=== PATIENT | female | born 1935 | race Caucasian/White ===

== ENCOUNTER 2016-03-25 14:50 | Outpatient (CLI) | payer MEDICARE, OTHER | END 2016-03-25 14:51 | disposition home or self-care (01) | DX: Z12.31 Encounter for screening mammogram for malignant neoplasm of breast (principal) ==

== ENCOUNTER 2016-05-13 08:31 | Outpatient (CLI) | payer MEDICARE, OTHER | END 2016-05-13 08:32 | disposition home or self-care (01) | DX: N18.4 Chronic kidney disease, stage 4 (severe) (principal); D63.1 Anemia in chronic kidney disease ==

== ENCOUNTER 2017-07-29 08:24 | Outpatient (CLI) | payer MEDICARE, OTHER ==
--- NOTE | 2017-07-29 15:15 | Ultrasound Report ---
CAROTID DUPLEX: 07/29/2017 CLINICAL INDICATION: Partial retinal artery occlusion. COMPARISON: 03/23/2014. TECHNIQUE: Real-time sonographic vascular imaging was performed by the sql ssrs ssis developer through the carotid arteries utilizing both color-flow and Doppler spectral analysis. Multiple entry level account representative static images were saved for review. RIGHT Vessel PSV cm/sec EDV cm/sec ICA/CCA RSV Ratio Degree of Stenosis Plaque Estimate % RCCA Prox 45 -- -- RCCA Dist 50 12 -- RECA 264 -- -- RT BULB 121 24 2.42 IVANIA Prox 106 23 2.12 IVANIA Mid 102 20 2.04 IVANIA Dist 73 17 1.46 RVA 51 -- -- RVA flow direction: Antegrade LEFT Vessel PSV cm/sec EDV cm/sec ICA/CCA RSV Ratio Degree of Stenosis Plaque Estimate % LCCA Prox 45 -- -- LCCA Dist 50 11 -- LECA 232 -- -- LFT BULB 110 24 2.20 LICA Prox 107 20 2.14 LICA Mid 131 33 2.62 LICA Dist 90 22 1.80 LVA 46 -- -- LVA flow direction: Antegrade Velocity criteria are extrapolated from diameter data as defined by the Society of Radiologists in Ultrasound Consensus Conference Radiology 2003; 229; 340-346. Degree of Stenosis % ICA PSV cm/sec ICA EDV cm/sec ICA/CCA PSV Ratio Plaque Estimate % Normal < 125 < 40 < 2.0 None <50 < 125 < 40 < 2.0 < 50 50-69 125-130 40-100 2.0-4.0 >/=50 >/=70 but less than near occlusion > 230 > 100 > 4.0 >/=50 Near occlusion High, low or undetectable Variable Variable Visible Total occlusion Undetectable Not applicable Not applicable No detectable lumen FINDINGS RIGHT: There is moderate calcified plaque in right carotid bifurcation, producing 50%-70% luminal diameter narrowing by velocity criteria. LEFT: There is moderate calcified plaquing in the left carotid bifurcation and left internal carotid artery, producing 50%-70% luminal diameter narrowing by velocity criteria. The vertebral arteries demonstrate antegrade flow bilaterally. IMPRESSION: MODERATE BILATERAL PLAQUING, PRODUCING 50% to 70% LUMINAL DIAMETER STENOSIS BY VELOCITY CRITERIA. TD: 07/29/2017 11:01 [facility]
== END 2017-07-29 08:25 | disposition home or self-care (01) ==
LOC: DI 08:24
PROVIDERS: ATTEND Ophthalmology
DX: H34.211 Partial retinal artery occlusion, right eye (principal); I65.23 Occlusion and stenosis of bilateral carotid arteries; K22.8 Other specified diseases of esophagus; K44.9 Diaphragmatic hernia without obstruction or gangrene; K21.9 Gastro-esophageal reflux disease without esophagitis
CPT/HCPCS: 74220; 93880; A9270

== ENCOUNTER 2017-07-29 08:27 | Outpatient (CLI) | payer MEDICARE, OTHER ==
[2017-07-29] MEDS ORDERED: BARIUM SULFATE 148 GM POWDER PO ONE (10:49)
[2017-07-29] MEDS ORDERED: BARIUM SULFATE 450 ML BOTTLE PO ONE (10:49)
[2017-07-29] MEDS ORDERED: BARIUM SULFATE 135 ML BOTTLE PO ONE (11:00)
--- NOTE | 2017-07-29 11:03 | XRAY Report ---
ESOPHAGRAM: 07/29/2017 CLINICAL INDICATION: Vomiting. FINDINGS: Esophagram was performed in the upright and prone positions. The hypopharynx appears unremarkable. There was silent aspiration during the course of the examination. The esophagus demonstrates diffuse tertiary contractions. No esophageal ulceration, mass, or stricturing is identified. A small sliding hiatal hernia is present, producing gastroesophageal reflux. A 13 mm barium pill passed freely through the esophagus and into the stomach. IMPRESSION: 1. SILENT ASPIRATION DURING THE COURSE OF THE EXAMINATION. 2. PRESBYESOPHAGUS. 3. SMALL HIATAL HERNIA, PRODUCING REFLUX. FLUOROSCOPY TIME: Two minutes 53 seconds; 22 spot images obtained. TD: 07/29/2017 10:52
== END 2017-07-29 08:28 | disposition home or self-care (01) ==
LOC: DI 08:27
PROVIDERS: ATTEND Family Medicine
DX: R11.10 Vomiting, unspecified (principal); K22.8 Other specified diseases of esophagus; K44.9 Diaphragmatic hernia without obstruction or gangrene; K21.9 Gastro-esophageal reflux disease without esophagitis
CPT/HCPCS: 74220

== ENCOUNTER 2017-09-01 10:17 | Outpatient (CLI) | END 2017-09-01 10:18 | disposition home or self-care (01) | CPT/HCPCS: 74230; 92611; G8996; G8997; G8998 ==

== ENCOUNTER 2017-10-15 22:52 | Outpatient (CLI) | payer MEDICARE, OTHER | END 2017-10-15 22:53 | disposition short-term general hospital (02) | LOC: EMS 22:52 | PROVIDERS: ATTEND Surgery | DX: R06.02 Shortness of breath (principal); R05 Cough; R11.2 Nausea with vomiting, unspecified; R10.32 Left lower quadrant pain | CPT/HCPCS: A0425; A0427; A0888 ==

== ENCOUNTER 2017-10-17 14:04 | Outpatient (CLI) | payer MEDICARE, OTHER | END 2017-10-17 14:05 | disposition critical access hospital (66) | LOC: EMS 14:04 | PROVIDERS: ATTEND Surgery | DX: R10.31 Right lower quadrant pain (principal) | CPT/HCPCS: A0425; A0429 ==

== ENCOUNTER 2017-10-17 14:19 | Emergency (ER) | payer MEDICARE, OTHER ==
[2017-10-17] MEDS ORDERED: SODIUM CHLORIDE 0.9% 1,000 ML IV ONE (14:58)
[2017-10-17] MEDS ORDERED: MORPHINE 2 MG/ML SYRINGE IVP STA ×2 (14:58→21:12)
--- NOTE | 2017-10-17 15:04 | ED Physician Documentation ---
PD HPI ABD PAIN - Stated complaint Stated Complaint: ABD PAIN - Chief complaint Chief Complaint: Abd Pain - History obtained from History obtained from: Patient, Family (mostly from the ) - History of Present Illness Timing - onset: Other (This is an 82-year-old woman with history of A. fib not on anticoagulation who over the last several months has had abdominal pain nausea and diarrhea which was treated successfully with Colestid and omeprazole. Over the last 3 days the pain has moved from the left to the right and has become much more severe even movement hurts now. She has a history of hysterectomy and what sounds like either a bladder or uterine prolapse surgery, otherwise no abdominal surgeries.) Review of Systems Ten Systems: 10 systems reviewed and negative Constitutional: denies: Fever, Chills GI: reports: Abdominal Pain, Nausea, Vomiting, Diarrhea. denies: Bloody / black stool : denies: Frequency PD PAST MEDICAL HISTORY - Past Medical History Cardiovascular: Congestive heart failure, Hypertension, High cholesterol, Coronary artery disease, Atrial fibrillation Respiratory: Asthma : Renal insuffiency, Other Psych: None - Past Surgical History Past Surgical History: Yes Ortho: Hip replacement - Present Medications Home Medications: Ambulatory Orders Medication Instructions Recorded Confirmed Aspirin [Aspir 81] 81 mg PO DAILY 03/23/14 10/17/17 Acetaminophen [Tylenol Extra 500 - 1,000 mg PO PRN PRN 07/04/16 10/17/17 Strength] Epinephrine [Epipen 2-Jayy] 0.3 mg IJ PRN PRN 07/04/16 10/17/17 Isosorbide Mononitrate [Isosorbide 60 mg PO DAILY 07/04/16 10/17/17 Mononitrate ER] Labetalol [Trandate] 200 mg PO BID 07/04/16 10/17/17 Nitroglycerin 0.4 mg SL PRN PRN 07/04/16 10/17/17 Atorvastatin Calcium 40 mg PO QPM 09/05/17 10/17/17 Hydralazine HCl 100 mg PO TID 09/05/17 10/17/17 Omeprazole 20 mg PO DAILY 09/05/17 10/17/17 Colestipol HCl [Colestid] 2 g PO BIDWM 10/17/17 10/17/17 Cranberry Fruit Extract [Cranberry] 300 mg PO DAILY 10/17/17 10/17/17 Multivitamin [Theragran] 1 each PO DAILY 10/17/17 10/17/17 - Allergies Allergies/Adverse Reactions: Allergies Allergy/AdvReac Type Severity Reaction Status Date / Time Sulfa (Sulfonamide Allergy Unknown Verified 10/17/17 14:29 Antibiotics) - Social History Does the pt smoke?: No Smoking Status: Former smoker Does the pt drink ETOH?: No Does the pt have substance abuse?: No - Immunizations Immunizations are current?: Yes - POLST Patient has POLST: No PD ED PE NORMAL - Vitals Vital signs reviewed: Yes - General General: Other (She seems slightly sedated her out of it, she is moaning in pain and does appear somewhat ill.) - HEENT HEENT: PERRL, EOMI - Neck Neck: Supple, no meningeal sign, No bony TTP - Respiratory Respiratory: No respiratory distress, Clear bilaterally - Abdomen Abdomen: Other (She has diminished bowel sounds and is profoundly tender everywhere especially on the right with guarding and rigidity.) - Back Back: No CVA TTP, No spinal TTP - Derm Derm: Normal color, Warm and dry - Extremities Extremities: No edema, No calf tenderness / cord - Neuro Neuro: Alert and oriented X 3 Eye Opening: To Voice Motor: Obeys Commands Verbal: Oriented GCS Score: 14 - Psych Psych: Normal mood, Normal affect Results - Vitals Vitals: Vital Signs - 24 hr 10/17/17 10/17/17 10/17/17 14:23 15:36 15:52 Temperature 37.7 C H Heart Rate 78 79 78 Respiratory 20 26 H 26 H Rate Blood Pressure 155/62 H 145/56 H 150/60 H O2 Saturation 97 94 96 10/17/17 10/17/17 17:00 17:50 Temperature 37.4 C Heart Rate 79 78 Respiratory 26 H 20 Rate Blood Pressure 163/58 H 154/56 H O2 Saturation 97 97 Oxygen O2 Source Nasal cannula - Labs Labs: Laboratory Tests 10/17/17 10/17/17 10/17/17 15:14 15:14 15:14 WBC 9.2 RBC 3.41 L Hgb 10.8 L Hct 32.1 L MCV 94.0 MCH 31.7 H MCHC 33.8 RDW 15.7 H Plt Count 154 MPV 10.0 Neut # (Auto) 8.0 H Lymph # (Auto) 0.6 L Ray # (Auto) 0.6 Eos # (Auto) 0.0 Baso # (Auto) 0.0 Absolute Nucleated RBC 0.00 Nucleated RBC % 0.0 PT 12.4 INR 1.1 Sodium 132 L Potassium 4.0 Chloride 100 L Carbon Dioxide 22 Anion Gap 10.0 BUN 35 H Creatinine 1.9 H Estimated GFR (MDRD) 25 L Glucose 114 H Lactic Acid Calcium 9.2 Total Bilirubin 1.6 H AST 20 ALT 15 Alkaline Phosphatase 79 Total Protein 6.3 L Albumin 3.0 L Globulin 3.3 Albumin/Globulin Ratio 0.9 L Lipase 21 L Blood Type Blood Type Recheck Antibody Screen 10/17/17 10/17/17 10/17/17 15:14 15:14 15:30 WBC RBC Hgb Hct MCV MCH MCHC RDW Plt Count MPV Neut # (Auto) Lymph # (Auto) Ray # (Auto) Eos # (Auto) Baso # (Auto) Absolute Nucleated RBC Nucleated RBC % PT INR Sodium Potassium Chloride Carbon Dioxide Anion Gap BUN Creatinine Estimated GFR (MDRD) Glucose Lactic Acid 1.1 Calcium Total Bilirubin AST ALT Alkaline Phosphatase Total Protein Albumin Globulin Albumin/Globulin Ratio Lipase Blood Type AB POSITIVE Blood Type Recheck AB POSITIVE Antibody Screen NEGATIVE - Rads (name of study) CT A/P Radiology: EMP read contemporaneously (1. Acute cholecystitis. No dilated common bile duct. Possible choledocholithiasis in the lower common bile duct. This could be evaluated intraoperatively during holecystectomy. 2. No CT findings concerning for acute pancreatitis. Atrophic pancreas. 3. Small bilateral effusions. Bilateral lower lobe atelectasis. 4. [id number] cardiac enlargement. Small pericardial effusion. 5. Diverticulosis. ) PD MEDICAL DECISION MAKING - ED course ED course: She does seem to have a surgical belly on examination and I called the surgeon for evaluation who quickly came to the emergency department to see the patient, Dr. Emanuel. I also ordered a stat upright chest x-ray to evaluate for free air. There is no free air. This is followed by CT showing cholecystitis. Given the significant exam Dr. Emanuel will still take her to the OR and request Zosyn in the interim. She received records from her prior cardiology visit that say at one time her EF was as low as 15% so requests a preop echo which was ordered and we confirmed with the parking enforcement technician that this can be done immediately. PRELIM echo read shows EF of 40-45%, moderate left ear and pulmonary hypertension. I spoke with the on-call Airset Molder at [facility] who felt The AICD could be deactivated with a magnet and then interrogated the next day. This was for the surgery. However the surgeon here Dr. Emanuel spoke with the family and they want her transferred to a place that can potentially do cholecystostomy tube and [place] was paged at 5:15 PM. She was accepted to [facility] at 6:[address] Reyna - Sepsis Event Vital Signs: Vital Signs - 24 hr 10/17/17 10/17/17 10/17/17 14:23 15:36 15:52 Temperature 37.7 C H Heart Rate 78 79 78 Respiratory 20 26 H 26 H Rate Blood Pressure 155/62 H 145/56 H 150/60 H O2 Saturation 97 94 96 10/17/17 10/17/17 17:00 17:50 Temperature 37.4 C Heart Rate 79 78 Respiratory 26 H 20 Rate Blood Pressure 163/58 H 154/56 H O2 Saturation 97 97 Oxygen O2 Source Nasal cannula Departure - Departure Disposition: 02 Transfer Acute Care Hosp Clinical Impression: Cholecystitis, Peritonitis Condition: Serious
--- NOTE | 2017-10-17 15:24 | XRAY Report ---
Procedure Date: 10/17/2017 Accession Number: [id number] / [id number] Procedure: XR - Chest 1 View X-Ray CPT Code: 53032 FULL RESULT: EXAM: CHEST RADIOGRAPHY EXAM DATE: 10/17/2017 03:12 PM. CLINICAL HISTORY: Abdominal pain. COMPARISON: Chest 2 view PA/lateral 09/19/2015. TECHNIQUE: 1 view. FINDINGS: Lungs/Pleura: Compared to prior, lung volumes are decreased. There is crowding and haziness of pulmonary markings as well as a small amount of fluid in the horizontal fissure and blunting of the left costophrenic angle. Calcified nodules are stable. No pneumothorax. Mediastinum: The aorta is calcified. Prominence of the cardiac silhouette is likely due to AP technique. Other: Interval placement of a biventricular AICD. IMPRESSION: Interval placement of an AICD and development of mild pulmonary congestion. RADIA
[2017-10-17 15:28] LABS: BASOPHILS % (AUTO) 0.1 %; HGB - HEMOGLOBIN 10.8 g/dL (12.0-16.0); LYMPHOCYTES # (AUTO) 0.6 10^3/uL (1.5-3.5); MEAN CORPUSCULAR HEMOGLOBIN 31.7 pg (27.0-31.0); MEAN CORPUSCULAR HGB CONC 33.8 g/dL (32.0-36.0); MONOCYTES # (AUTO) 0.6 10^3/uL (0.0-1.0); MONOCYTES % (AUTO) 6.8 %; NEUTROPHILS % (AUTO) 87.1 %; PLT - PLATELET COUNT 154 10^3/uL (130-450); RED BLOOD COUNT 3.41 10^6/uL (4.20-5.40); RED CELL DISTRIBUTION WIDTH 15.7 % (12.0-15.0); WHITE BLOOD COUNT 9.2 x10^3/uL (4.8-10.8)
[2017-10-17 15:35] LABS: ALBUMIN/GLOBULIN RATIO 0.9 (1.0-2.2); BILIRUBIN,TOTAL 1.6 mg/dL (0.2-1.0); CALCIUM 9.2 mg/dL (8.5-10.3); CREATININE 1.9 mg/dL (0.4-1.0); TOTAL PROTEIN 6.3 g/dL (6.7-8.2)
[2017-10-17 15:46] LABS: INR 1.1 (0.8-1.2); PT - PROTHROMBIN TIME 12.4 secs (9.9-12.6)
--- NOTE | 2017-10-17 16:23 | CT Report ---
Procedure Date: 10/17/2017 Accession Number: [id number] / [id number] Procedure: CT - Abdomen/Pelvis W/O CPT Code: FULL RESULT: EXAM: CT ABDOMEN AND PELVIS EXAM DATE: 10/17/2017 03:53 PM. CLINICAL HISTORY: Abdominal pain. COMPARISONS: None. TECHNIQUE: Routine helical CT imaging was performed through the abdomen and pelvis. IV contrast: None. Enteric contrast: No. Reconstructions: Coronal and sagittal. In accordance with CT protocol optimization, one or more of the following dose reduction techniques were utilized for this exam: automated exposure control, adjustment of mA and/or KV based on patient size, or use of iterative reconstructive technique. FINDINGS: Lung Bases: Small bilateral pleural effusions with bibasilar opacities. Calcified right lower lobe granuloma. Trace pericardial effusion. Mild to moderate cardiac enlargement. Small hiatal hernia noted. Liver: Normal. No masses. Gallbladder/Bile Ducts: Marked gallbladder wall thickening and significant gallbladder fossa inflammation with a small amount of non-loculated fluid in the gallbladder fossa. Gallstones are noted. No dilated common bile duct. Punctate calcifications are noted in the expected location of the lower common bile duct near the duodenum measuring up to 3 mm, image 34. Imaging findings are concerning for choledocholithiasis. Spleen: No mass or enlargement. Multiple calcified granulomas are noted. Pancreas: Pancreatic atrophy is noted. No pancreatic mass, ductal dilation, focal or segmental atrophy, calcifications or peripancreatic inflammation. Adrenal Glands: Diffuse adrenal thickening bilaterally. No focal mass. Kidneys: No mass, stones or hydronephrosis. Atrophic left kidney. No obstructing ureteral stone. Peritoneal Cavity/Bowel: Normal. No free fluid, free air or adenopathy. No masses or acute inflammatory process. There are multiple diverticula seen which most severely affect the sigmoid colon. No wall thickening or adjacent inflammation seen. No obstruction noted. Appendix not seen. No right lower quadrant inflammation. Pelvic Organs: Uterus is absent. Normal bladder. Small amounts of non-loculated fluid noted in the pelvis.. No collection, pelvic mass or adenopathy. Vasculature: Diffuse atheromatous plaques are present in the abdominal aorta and branch vessels. No aneurysm. Normal IVC. Bones: No osteoblastic or osteolytic lesions are noted. Multilevel degenerative disk disease and facet arthropathy is noted. Gentle convex to the left curvature of the mid lumbar spine. Status post left hip arthroplasty. Normal alignment. Moderate to marked right hip arthritis. Other: None. IMPRESSION: 1. Acute cholecystitis. No dilated common bile duct. Possible choledocholithiasis in the lower common bile duct. This could be evaluated intraoperatively during cholecystectomy. 2. No CT findings concerning for acute pancreatitis. Atrophic pancreas. 3. Small bilateral effusions. Bilateral lower lobe atelectasis. 4. Mild to moderate cardiac enlargement. Small pericardial effusion. 5. Diverticulosis. RADIA
[2017-10-17] MEDS ORDERED: PIPERACILLIN/TAZOBACTAM 3.375 GM in SODIUM CHLORIDE 0.9% MINIBAG 100 ML IV STA (16:25)
--- NOTE | 2017-10-17 17:29 | CONSULTATION NOTE ---
Referring Provider Name of Referring Provider:: Dr. Lacey Consult Date: 10/17/17 Chief Complaint - Chief Complaint Chief Complaint: Abdominal Pain History of Present Illness - Admitted From Admitted From:: ER - History of Present Illness HPI Comment/Other: This is an 82-year-old female who was brought to the emergency department today by her for worsening abdominal pain. Her states that the patient has been experiencing nausea, vomiting and diarrhea associated with intermittent abdominal pain for the past several months. She was scheduled to have an EGD And colonoscopy on the this month. For the past few days her abdominal pain has become worse until her brought her to the emergency department today. 2 days ago additionally she was seen at [facility] for a CHF exacerbation. She was discharged home with instructions to resume her Lasix. The patient also has a history of renal insufficiency managed by Dr. Cabrales, who had instructed her to stop her Lasix recently.The patient has a history of congestive heart failure with associated pulmonary hypertension and was last seen by her social work assistant, Dr. Arenas at [facility] in May of this year. She was noted to have persistent CHF which was "well compensated" with progressing pulmonary hypertension. On evaluation in the emergency department her white blood cell count and lactate were noted to be normal, Her total bilirubin was 1.6 and the rest of the LFTs normal. The patient was noted to be somnolent and did not respond to questioning. She was noted to have diffuse abdominal tenderness with positive guarding. A CT scan of the abdomen without contrast was performed due to her underlying renal disorder and this demonstrated acute cholecystitis. Due to the patient's significant cardiac history I requested an echocardiogram which demonstrated her to have an ejection fraction of 45% with moderate pulmonary hypertension. History - Past Medical History Cardiovascular: reports: Congestive heart failure, Hypertension, High cholesterol, Coronary artery disease, Atrial fibrillation Respiratory: reports: Asthma : reports: Renal insuffiency, Other Psych: reports: None MRSA Hx?: No - Past Surgical History Ortho: reports: Hip replacement - POLST Patient has POLST: No Meds/Allgy - Home Medications Home Medications: Ambulatory Orders Medication Instructions Recorded Confirmed Aspirin [Aspir 81] 81 mg PO DAILY 03/23/14 10/17/17 Acetaminophen [Tylenol Extra 500 - 1,000 mg PO PRN PRN 07/04/16 10/17/17 Strength] Epinephrine [Epipen 2-Jayy] 0.3 mg IJ PRN PRN 07/04/16 10/17/17 Isosorbide Mononitrate [Isosorbide 60 mg PO DAILY 07/04/16 10/17/17 Mononitrate ER] Labetalol [Trandate] 200 mg PO BID 07/04/16 10/17/17 Nitroglycerin 0.4 mg SL PRN PRN 07/04/16 10/17/17 Atorvastatin Calcium 40 mg PO QPM 09/05/17 10/17/17 Hydralazine HCl 100 mg PO TID 09/05/17 10/17/17 Omeprazole 20 mg PO DAILY 09/05/17 10/17/17 Colestipol HCl [Colestid] 2 g PO BIDWM 10/17/17 10/17/17 Cranberry Fruit Extract [Cranberry] 300 mg PO DAILY 10/17/17 10/17/17 Multivitamin [Theragran] 1 each PO DAILY 10/17/17 10/17/17 - Allergies Allergies/Adverse Reactions: Allergies Allergy/AdvReac Type Severity Reaction Status Date / Time Sulfa (Sulfonamide Allergy Unknown Verified 10/17/17 14:29 Antibiotics) Exam - Vital Signs Vital Signs: Vital Signs x48h Temp Pulse Resp BP Pulse Ox 10/17/17 15:52 78 26 H 150/60 H 96 10/17/17 15:36 79 26 H 145/56 H 94 10/17/17 14:23 37.7 C H 78 20 155/62 H 97 - Physical Exam General Appearance: positive: Lethargic Respiratory: positive: Breath sounds nml Cardiovascular: positive: Other (irregularly irregular) Abdomen: positive: Other (distended, diffusely tender to palpation with positive gaurding) Extremities: positive: Pedal edema Neurologic/Psychiatric: positive: Other (responds only with grunting) Conclusion/Plan - Diagnosis Diagnosis: acute cholecystitis, CHF, pulmonary hypertension, renal insufficiency , atrial fibrilation - Plan Plan: Due to the patient's significant cardiac and renal comorbidities I recommend transfer to a center capable of performing percutaneous cholecystostomy. Her significant comorbidities place her at high risk for proceeding with cholecystectomy. I have explained to the and the son that she will be evaluated at the transfer center and the decision will be made to either proceed with surgical excision of the gallbladder versus cholecystostomy tube placement or antibiotics alone. If the decision is made to go forward with surgery this should be at a center with cardiology services for post operative management. The patient will be administered Zosyn while waiting for transfer. - Lab Results Fish Bones: 10/17/17 15:14 10/17/17 15:14
[2017-10-17 20:50] VITALS: BP 157/60
== END 2017-10-17 21:45 | disposition short-term general hospital (02) ==
LOC: EDUNIT# → ED 14:19
DX: K81.0 Acute cholecystitis (principal); K65.9 Peritonitis, unspecified; N28.9 Disorder of kidney and ureter, unspecified; I11.0 Hypertensive heart disease with heart failure; I50.9 Heart failure, unspecified; I48.91 Unspecified atrial fibrillation; Z79.82 Long term (current) use of aspirin; Z87.891 Personal history of nicotine dependence; R09.89 Other specified symptoms and signs involving the circulatory and respiratory systems
CPT/HCPCS: 36415; 71045; 74176; 80053; 83605; 83690; 85025; 85610; 86850; 86900; 86901; 93306; 96365; 96375; 96376; 99285; J2270; 99284

== ENCOUNTER 2017-10-30 10:13 | Outpatient (CLI) | payer MEDICARE, OTHER ==
[2017-10-30 12:27] LABS: BASOPHILS % (AUTO) 0.5 %; EOSINOPHILS % (AUTO) 0.8 %; HGB - HEMOGLOBIN 7.8 g/dL (12.0-16.0); LYMPHOCYTES # (AUTO) 0.9 10^3/uL (1.5-3.5); LYMPHOCYTES % (AUTO) 17.1 %; MEAN CORPUSCULAR HEMOGLOBIN 31.2 pg (27.0-31.0); MEAN CORPUSCULAR HGB CONC 32.4 g/dL (32.0-36.0); MEAN CORPUSCULAR VOLUME 96.1 fL (81.0-99.0); MEAN PLATELET VOLUME 9.4 fL (7.9-10.8); MONOCYTES # (AUTO) 0.4 10^3/uL (0.0-1.0); MONOCYTES % (AUTO) 7.9 %; NEUTROPHILS # (AUTO) 3.7 10^3/uL (1.5-6.6); NEUTROPHILS % (AUTO) 73.7 %; PLT - PLATELET COUNT 278 10^3/uL (130-450); RED BLOOD COUNT 2.51 10^6/uL (4.20-5.40); RED CELL DISTRIBUTION WIDTH 17.1 % (12.0-15.0)
== END 2017-10-30 10:14 | disposition home or self-care (01) ==
LOC: LAB.WCP 10:13
PROVIDERS: ATTEND Family Medicine
DX: I48.91 Unspecified atrial fibrillation (principal); R06.09 Other forms of dyspnea; I25.5 Ischemic cardiomyopathy; D63.1 Anemia in chronic kidney disease
CPT/HCPCS: 36415; 83880; 85025

== ENCOUNTER 2017-11-13 08:28 | Outpatient (CLI) | payer MEDICARE, OTHER ==
[2017-11-13 12:33] LABS: BASOPHILS % (AUTO) 0.6 %; EOSINOPHILS % (AUTO) 0.8 %; HGB - HEMOGLOBIN 8.5 g/dL (12.0-16.0); LYMPHOCYTES # (AUTO) 0.5 10^3/uL (1.5-3.5); LYMPHOCYTES % (AUTO) 12.7 %; MEAN CORPUSCULAR HEMOGLOBIN 31.6 pg (27.0-31.0); MEAN CORPUSCULAR HGB CONC 33.2 g/dL (32.0-36.0); MEAN PLATELET VOLUME 9.8 fL (7.9-10.8); MONOCYTES # (AUTO) 0.3 10^3/uL (0.0-1.0); NEUTROPHILS # (AUTO) 3.4 10^3/uL (1.5-6.6); NEUTROPHILS % (AUTO) 79.9 %; PLT - PLATELET COUNT 212 10^3/uL (130-450); RED BLOOD COUNT 2.71 10^6/uL (4.20-5.40); RED CELL DISTRIBUTION WIDTH 17.3 % (12.0-15.0); WHITE BLOOD COUNT 4.2 x10^3/uL (4.8-10.8)
[2017-11-13 12:41] LABS: ALBUMIN 2.9 g/dL (3.2-5.5); ALBUMIN/GLOBULIN RATIO 0.9 (1.0-2.2); BILIRUBIN,TOTAL 0.7 mg/dL (0.2-1.0); CALCIUM 9.1 mg/dL (8.5-10.3); CREATININE 2.4 mg/dL (0.4-1.0); TOTAL PROTEIN 6.1 g/dL (6.7-8.2)
== END 2017-11-13 08:29 | disposition home or self-care (01) ==
LOC: LAB.WCP 08:28
PROVIDERS: ATTEND Specialist
DX: D50.9 Iron deficiency anemia, unspecified (principal); E78.2 Mixed hyperlipidemia; I34.0 Nonrheumatic mitral (valve) insufficiency; I13.10 Hypertensive heart and chronic kidney disease without heart failure, with stage 1 through stage 4 chronic kidney disease, or unspecified chronic kidney disease; N18.9 Chronic kidney disease, unspecified; D50.0 Iron deficiency anemia secondary to blood loss (chronic); D70.9 Neutropenia, unspecified; D63.1 Anemia in chronic kidney disease; N05.9 Unspecified nephritic syndrome with unspecified morphologic changes
CPT/HCPCS: 36415; 80053; 81599; 82465; 82728; 83540; 83704; 83718; 83735; 84466; 84478; 85025